=== PATIENT | male | born 1955 | race American Indian/Alaskan Native ===

== ENCOUNTER 2019-03-11 12:07 | Emergency (ER) | payer SELFPAY ==
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
--- NOTE | 2019-03-11 15:25 | Ultrasound Report ---
ULTRASOUND TESTICULAR DOPPLER COMPLETE HISTORY: Left groin and testicular pain TECHNIQUE: Grayscale ultrasound with color and spectral Doppler imaging. FINDINGS: The right testicle measures 3.0 x 2.0 x 2.4 cm. The left testicle measures 3.6 x 1.8 x 2.4 cm. Both t esticles are homogeneous with no evidence for mass, cyst or calcifications. Arterial flow is demonstr ated to both testicles on spectral Doppler waveforms. The epididymides are normal size, contour and echotexture. No significant hydrocele or varicocele. No hernia is visualized. IMPRESSION: Unremarkable scrotal ultrasound. Signer Name: Neno Solitario Jr, MD Signed: 03/11/2019 3:20 PM Workstation Name: [id number]
[2019-03-11] MEDS ORDERED: LIDOCAINE-MPF (1%) 10 MG/1 ML VIAL 5 ML INFILTRATI ONE (16:34)
[2019-03-11 17:16] LABS: Bilirubin,Urine NEG (Negative); Blood,Urine NEG (Negative); Color,Urine Yellow (Yellow); Mucus,Urine 1+ /HPF
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
[2019-03-11 18:37] VITALS: BP 130/84
== END 2019-03-11 18:35 | disposition home or self-care (01) ==
LOC: ED 12:07
DX: N41.9 Inflammatory disease of prostate, unspecified (principal); I10 Essential (primary) hypertension; E11.9 Type 2 diabetes mellitus without complications; F17.200 Nicotine dependence, unspecified, uncomplicated; Z98.890 Other specified postprocedural states; Z79.84 Long term (current) use of oral hypoglycemic drugs; Z79.899 Other long term (current) drug therapy
CPT/HCPCS: 81001; 93975; 96372; 99284; J0696